=== PATIENT | female | born 1990 | race Caucasian/White ===

== ENCOUNTER 2021-08-24 02:24 | Emergency (ER) | payer SELFPAY ==
[~2021-08-24 02:24] MED LIST: [UNRECOGNIZED DRUG - REMARK] PO
[2021-08-24 02:40] VITALS: BP 132/95
[2021-08-24] MEDS ORDERED: ACYCLOVIR INJECTION 800 MG in NS (IVPB) 250 ML IV ONE (03:15)
[2021-08-24] MEDS ORDERED: NS (IVPB) 250 ML ONE (03:24)
--- NOTE | 2021-08-24 03:24 | ED General ---
General Chief Complaint: Skin/Wound Problems Stated Complaint: BLISTERS ALL OVER,PAINFUL Nursing Triage Note: Pt arrives via POV from home for c/o rash over her trunk. Pt reports itching et pain to the areas. Pt states two days ago she had a 101F Fever, migraine, chills, et start of painful rash. Pt seen at [facility] et prescribed prednisone. Pt seen at seen at [facility] again yesterday for worsening rash, pt instructed to continue prednisone et start benadryl. Pt reports taking three doses of benadryl without improvement. Red raised areas noted over pt's thighs, trunk, arms, et head that are painful to touch. Pt reports hx of chicken pox as a child, states as a child she was up to date on vaccinations. Pt denies known sick contacts. Source of Information: Patient History of Present Illness Date Seen by Provider: Aug 24, 2021 Time Seen by Provider: 02:44 Initial Comments PT ARRIVES VIA POV FROM HOME C/O "BLISTERS" ALL OVER HER BODY STATES SHE WOKE UP MONDAY MORNING 08/20/10 WITH A BAD MIGRAINE TOOK IBUPROFEN WENT BACK TO BED AND WOKE UP FEELING BETTER MONDAY EVENING SHE BEGAN TO HAVE CHILLS, SHAKING AND FEVER UP TO 101 MONDAY TEMP WAS 100, SLEPT UNTIL 1300, AND WOKE UP FEELING A LITTLE BETTER BEGAN HAVING FEVER AND CHILLS AGAIN MONDAY NIGHT BUT DID NOT TAKE TEMP WOKE UP MONDAY MORNING WITH "BLISTERS" ON HER FACE, SCALP, CHEST AND BACK--THESE AREAS ARE BOTH ITCHY AND PAINFUL WENT TO [facility] WALK IN [facility]IC ON MONDAY AND WAS PRESCRIBED PREDNISONE--HAS HAD 2 DOSES, WITHOUT RELIEF RASH GOT WORSE ON MONDAY NIGHT AND WENT BACK TO CLINIC ON Monday08/23/21 AND WAS TOLD TO TAKE BENADRYL--HAS HAD 3 DOSES WITHOUT RELIEF PT STATES BLISTERS "HAVE TRIPLED" AND CONTINUE TO BE VERY ITCHY AND PAINFUL NO SWELLING ANYWHERE NO DIFFICULTY BREATHING, TALKING OR SWALLOWING NO HISTORY OF SIMILAR NO NEW FOODS, ETC. DOES NOT TAKE ANY DAILY MEDICATIONS FOR ANYTHING NO KNOWN SICK CONTACTS PT HAS 2 FOSTER CHILDREN, AGES 1 AND 3, AND PRESUMES THAT THEY HAVE HAD ALL VACCINATIONS, BUT PT DOES NOT KNOW EXACTLY WHICH VACCINES THEY HAVE HAD PT HAS NOT HAD COVID OR FLU VACCINES, AND HAD COVID-19 LAST DECEMBER. DID NOT REQUIRE HOSPITALIZATION BUT DID GET ANTIBODY INFUSION. PT THINKS SHE HAD CHICKEN POX A CHILD, BUT DOES NOT THINK SHE HAD CHICKEN POX VACCINE. LMP--SOMETIME LAST YEAR--HAS PCOS, NO CONTROL PCP: MICHAEL, ALSO DR. CASTRO Allergies and Home Medications Allergies Coded Allergies: No Known Drug Allergies (Unverified , 01/10/12) Patient Home Medication List Home Medication List Reviewed: Yes Acyclovir (Zovirax) 30 Gm Oint, 30 GM TP Q4H Prescribed by: ALYSON MAZARIEGOS on 08/24/21 034 Hydrocodone/Acetaminophen (Hydrocodone-Acetamin 5-325 mg) 1 Each Tablet, 1 EACH PO Q4-6 HOURS PRN for PAIN Prescribed by: ALYSON MAZARIEGOS on 08/24/21 034 Hydroxyzine Pamoate (Hydroxyzine Pamoate) 50 Mg Capsule, 50 MG PO Q6H PRN for ITCHING Prescribed by: ALYSON MAZARIEGOS on 08/24/21 034 Valacyclovir HCl (Valtrex) 1,000 Mg Tablet, 1,000 MG PO TIDAC Prescribed by: ALYSON MAZARIEGOS on 08/24/21 034 [Orthoc] , 1 TAB PO DAILY, (Reported) Entered as Reported by: POOJA POSADA on 01/10/12 0909 Review of Systems Review of Systems Constitutional: see HPI, chills, fever EENTM: nose congestion (SLIGHTL); No throat pain, No throat swelling Respiratory: no symptoms reported Cardiovascular: no symptoms reported Gastrointestinal: no symptoms reported Genitourinary: no symptoms reported : No Musculoskeletal: no symptoms reported Skin: no symptoms reported Psychiatric/Neurological: See HPI Hematologic/Lymphatic: No Symptoms Reported Immunological/Allergic: no symptoms reported Past Ypoznyj-[id number]-Ntlfgg Hx Patient Social History Tobacco Use?: No Substance use?: No Alcohol Use?: No Past Medical History Surgeries: No Respiratory: No Cardiac: No Neurological: No : No Last Menstrual Period: Oct 20, 2020 Reproductive Disorders: Yes Female Reproductive Disorders: Menstrual Problems, Polycystic Ovarian Dis Genitourinary: No Gastrointestinal: No Musculoskeletal: No Endocrine: No HEENT: No Cancer: No Psychosocial: No Integumentary: No Blood Disorders: No Physical Exam Vital Signs Vital Signs - First Documented 08/24/21 02:40 Temp 37.1 Pulse 89 Resp 18 B/P (MAP) 132/95 (107) Pulse Ox 98 O2 Delivery Room Air Capillary Refill : Less Than 3 Seconds Height, Weight, BMI Height: '" Weight: lbs. oz. kg; BMI Method: General Appearance: No Apparent Distress, WD/WN HEENT: PERRL/EOMI, TMs Normal, Other (HAS A FEW TINY ERYTHEMATOUS PAPULES AND EARLY VESICLES IN SOFT PALATE AND PERITONSILLAR AREA. ) Neck: Full Range of Motion, Normal Inspection, Non Tender, Supple Respiratory: Normal Breath Sounds, No Accessory Muscle Use, No Respiratory Distress Cardiovascular: Regular Rate, Rhythm, No Edema, No Murmur Gastrointestinal: Non Tender, Soft Back: No CVA Tenderness Extremity: Normal Capillary Refill, No Pedal Edema Neurologic/Psychiatric: Alert, Oriented x3, No Motor/Sensory Deficits, Normal Mood/Affect, lacemaker II-XII Norm as Tested Skin: Warm/Dry, Rash (PT HAS AN EXTENSIVE RASH --MOST PREVALENT ON FACE, SCALP, CHEST, ABDOMEN AND BACK WITH FEWER SPOTS ON ARMS AND LEGS--APPEAR TO BE SPREADING FROM THE TRUNK OUTWARD. RASH CONSISTS OF MULTITUDE OF DISCRETE ERYTHEMATOUS PAPULES OF VARIOUS SIZES, MULTIPLE SPOTS WITH EARLY VESICLE FORMATION AND SEVERAL WITH LARGER RUPTURED VESICLES. NO SCAB FORMATIONS YET. MANY OF THE VESICLES WITH UMBILICATED CENTERS. ) Progress/Results/Core Measures Suspected Sepsis SIRS Temperature: Pulse: 89 Respiratory Rate: 18 Blood Pressure 132 /95 Mean: 107 Laboratory Tests 08/24/21 04:17: Creatinine 0.84, Total Bilirubin 0.3 Results/Orders Lab Results Laboratory Tests Test 08/24/21 03:45 08/24/21 04:17 Range/Units Influenza Type A (RT-PCR) Not Detected Not Detecte Influenza Type B (RT-PCR) Not Detected Not Detecte SARS-CoV-2 RNA (RT-PCR) Not Detected Not Detecte Sodium Level 136 135-145 MMOL/L Potassium Level 3.8 3.6-5.0 MMOL/L Chloride Level 100 98-107 MMOL/L Carbon Dioxide Level 19 L 21-32 MMOL/L Anion Gap 17 H 5-14 MMOL/L Blood Urea Nitrogen 12 7-18 MG/DL Creatinine 0.84 0.60-1.30 MG/DL Estimat Glomerular Filtration Rate 95 BUN/Creatinine Ratio 14 Glucose Level 91 70-105 MG/DL Calcium Level 9.2 8.5-10.1 MG/DL Corrected Calcium 9.1 8.5-10.1 MG/DL Total Bilirubin 0.3 0.1-1.0 MG/DL Aspartate Amino Transf (AST/SGOT) 27 5-34 U/L Alanine Aminotransferase (ALT/SGPT) 22 0-55 U/L Alkaline Phosphatase 93 40-136 U/L Total Protein 8.2 6.4-8.2 GM/DL Albumin 4.1 3.2-4.5 GM/DL My Orders Orders - ALYSON MAZARIEGOS DO Ed Iv/Invasive Line Start (08/24/21 02:54) Cbc With Automated Diff (08/24/21 02:54) Comprehensive Metabolic Panel (08/24/21 02:54) Hcg,Qualitative Serum (08/24/21 02:54) Hiv 1&2 Antibody (08/24/21 02:54) Ua Culture If Indicated (08/24/21 02:54) Varicella Zoster Virus Culture (08/24/21 02:54) Acyclovir Injection (Zovirax Injection) (08/24/21 03:15) Ketorolac Injection (Toradol Injection) (08/24/21 03:30) Diphenhydramine Injection (Benadryl Inje (08/24/21 03:30) Chest 1 View, Ap/Pa Only (08/24/21 03:16) Covid 19 Inhouse Test (08/24/21 03:16) Influenza A And B By Pcr (08/24/21 03:16) Isolation Central Supply Req (08/24/21 03:16) Ns (Ivpb) (Sodium Chloride 0.9%) (08/24/21 03:24) Medications Given in ED Current Medications Medications Dose Ordered Sig/Shelly Route Start Time Stop Time Status Last Admin Dose Admin Acyclovir 800 mg/ Sodium Chloride 266 ml @ 266 mls/hr ONCE ONCE IV 08/24/21 03:15 08/24/21 04:14 DC 08/24/21 03:31 266 MLS/HR Diphenhydramine HCl 50 mg ONCE ONCE IVP 08/24/21 03:30 08/24/21 03:32 DC 08/24/21 03:30 50 MG Ketorolac Tromethamine 30 mg Q6H PRN IVP 08/24/21 03:30 08/24/21 05:09 DC 08/24/21 03:30 30 MG Vital Signs/I&O 08/24/21 02:40 Temp 37.1 Pulse 89 Resp 18 B/P (MAP) 132/95 (107) Pulse Ox 98 O2 Delivery Room Air Capillary Refill : Less Than 3 Seconds Blood Pressure Mean: 107 Progress Note : Progress Note PPE WORN AT ALL TIMES CULTURES OBTAINED FROM RUPTURED VESICLES. RASH AND PRESENTATION AND HISTORY / PROGRESSION OF ILLNESS IS CONSISTENT WITH CHICKEN POX. GIVEN ACYCLOVIR, TORADOL AND BENADRYL PAIN AND ITCHING ARE MUCH IMPROVED AT DISMISSAL EXTREMELY DIFFICULT IV STICK, AND UNABLE TO OBTAIN ENOUGH BLOOD FOR ALL TESTS ORDERED. PT HAS BEEN STUCK MULTIPLE TIMES. PT REPORTS THIS IS NORMAL PROBLEM FOR HER. Diagnostic Imaging Comments CXR--NO ACUTE PROCESS, PENDING RADIOLOGIST REVIEW Reviewed: Reviewed by Me Departure Impression Primary Impression: CHICKEN POX SUSPECTED Disposition: HOME, SELF-CARE Condition: Stable Departure-Patient Inst. Referrals: ALYSON CASTRO MD (PCP/Family) Primary Care Physician [facility] [place] Patient Instructions: Chickenpox (DC) Add. Discharge Instructions: QUARANTINE YOURSELF AND ALL HOUSEHOLD AND CLOSE CONTACTS FOR AT LEAST 1 WEEK--UNTIL YOU ARE NO LONGER GETTING NEW SPOTS AND ALL CURRENT SPOTS ARE COMPLETELY SCABBED OVER. TYLENOL 1 GRAM + MOTRIN 800 MG 4 TIMES A DAY FOR PAIN OR FEVER LOTS OF CLEAR LIQUIDS RETURN TO ER IF YOUR SYMPTOMS WORSEN All discharge instructions reviewed with patient and/or family. Voiced understanding. Scripts Hydrocodone/Acetaminophen (Hydrocodone-Acetamin 5-325 mg) 1 Each Tablet 1 EACH PO Q4-6 HOURS PRN for PAIN, #20 TAB Prov: ALYSON MAZARIEGOS DO 08/24/21 Hydroxyzine Pamoate (Hydroxyzine Pamoate) 50 Mg Capsule 50 MG PO Q6H PRN for ITCHING, #20 CAP Prov: ALYSON MAZARIEGOS DO 08/24/21 Acyclovir (Zovirax) 30 Gm Oint 30 GM TP Q4H, #1 EA 1 Refill Prov: ALYSON MAZARIEGOS DO 08/24/21 Valacyclovir HCl (Valtrex) 1,000 Mg Tablet 1000 MG PO TIDAC, #30 TAB Prov: ALYSON MAZARIEGOS DO 08/24/21 Work/School Note: Work Release Form Date Seen in the Emergency Department: Aug 24, 2021 Return to Work: Sep 01, 2021 ALYSON MAZARIEGOS DO Aug 24, 2021 03:24
[2021-08-24] MEDS ORDERED: diphenhydrAMINE 50 MG/ML INJ (BENADRYL) IVP ONE (03:30)
[2021-08-24] MEDS ORDERED: KETOROLAC 30 MG/ML VIAL IVP PRN (03:30)
[2021-08-24] MEDS ORDERED: ACYC30OI TP (03:40)
[2021-08-24] MEDS ORDERED: VALA10004 PO (03:40)
[2021-08-24] MEDS ORDERED: HYDR50CA3 PO (03:40)
[2021-08-24] MEDS ORDERED: ACHD5005 PO (03:40)
[2021-08-24 04:41] LABS: ALBUMIN 4.1 GM/DL (3.2-4.5); POTASSIUM 3.8 MMOL/L (3.6-5.0)
[2021-08-24 04:43] LABS: CALCIUM 9.2 MG/DL (8.5-10.1)
[2021-08-24 04:44] LABS: TOTAL PROTEIN 8.2 GM/DL (6.4-8.2)
[2021-08-24 04:45] LABS: BILIRUBIN,TOTAL 0.3 MG/DL (0.1-1.0)
[2021-08-24 04:47] LABS: CREATININE SERUM 0.84 MG/DL (0.60-1.30)
--- NOTE | 2021-08-24 06:02 | Diagnostic Imaging Report ---
EXAMINATION: Chest 1 view HISTORY: FEVER, SUSPECTED VARICELLA COMPARISON: None available. FINDINGS: Heart size and pulmonary vasculature are normal. The lungs are clear without consolidation, pleural effusion, or pneumothorax. The osseous structures are intact. IMPRESSION: 1. No acute radiographic abnormality in the chest. Dictated by: Dictated on workstation # [id number]
== END 2021-08-24 05:09 | disposition home or self-care (01) ==
LOC: EDUNIT# 02:24 → ER 02:29
DX: S00.82XA Blister (nonthermal) of other part of head, initial encounter (principal); S20.329A Blister (nonthermal) of unspecified front wall of thorax, initial encounter; S00.02XA Blister (nonthermal) of scalp, initial encounter; Z20.822 Contact with and (suspected) exposure to COVID-19; X58.XXXA Exposure to other specified factors, initial encounter
CPT/HCPCS: 36415; 71045; 80053; 87252; 87636